=== PATIENT | male | born 1960 ===

== ENCOUNTER 2020-12-12 18:00 | Outpatient (CLI) | payer BC | END 2020-12-12 18:01 | disposition home or self-care (01) | LOC: SLEEPLAB 18:00 | PROVIDERS: ATTEND Otolaryngology Otolaryngic Allergy | DX: G47.33 Obstructive sleep apnea (adult) (pediatric) (principal); R06.83 Snoring; J34.2 Deviated nasal septum; G47.00 Insomnia, unspecified; J30.2 Other seasonal allergic rhinitis | CPT/HCPCS: 95806 ==